=== PATIENT | male | born 1990 | race African-American/Black ===

== ENCOUNTER 2016-08-25 16:25 | Emergency (ER) | payer OTHER ==
[~2016-08-25] VITALS: Ht 188 cm; Wt 104.0 kg
[2016-08-25 16:35] VITALS: BP 120/68; PULSE 94; RESP 14; O2SAT 97
--- NOTE | 2016-08-25 17:02 | ED.REPORT ---
HPI-Dyspnea / Wheezing Date of Service Aug 25, 2016 ED Provider: Taco Ignacio DO This patient is a 26 year healthy old male presenting to the ED complaining of cold symptoms. Pt. states that he has had rhinorrhea and cough for 6 days. Burning chest pain started yesterday but worsened this morning. Also admits to sinus pain, congestion when coughing, vomiting associated with cough with white sputum but denies fever, earaches, wheezing, or sore throat. Pt. hasn't tried any medications for relief. Nursing Notes Stated Complaint: COUGH,CHEST BURNING Chief Complaint: Respiratory Complaints Nursing Notes Reviewed: Yes Allergies: Coded Allergies: No Known Allergies (Unverified , 08/25/16) Scheduled PRN Guaifenesin/Codeine Phosphate (Cheratussin AC Syrup) 118 Ml Liquid 5-10 ML PO q4 hrs PRN PRN For Cough General Time Seen by MD: 17:01 Chief Complaint Cough Cold symptoms Hx Obtained From: Patient Arrived By: Walk-in Sudden in Onset?: No Onset Occurred: 6 days ago Location: : Substernal Quality: Burning Radiation: : Does not radiate Severity: Current: Mild Severity: Maximum: Mild Recent Healthcare: No recent doctor visit, No recent hospitalization Similar Sx Previous: No Past Medical History Past Medical History None reported Past Surgical History None reported Smoking History Unknown if Ever Smoker Ambulatory Status Independent Review of Systems Basic Review of Systems Eyes: Vision NL GI: No abdominal pain Psychiatric: Normal thought content Constitutional: Denies: Fever Ears / Nose / Throat: Reports: Nasal congestion, Sinus problem (Pain), Denies: Earache bilateral, Sore throat Respiratory: Reports: Prod cough, white, Denies: Wheezing Cardiovascular: Reports: Chest pain (burning when coughing) Allergy / Immune: Reports: Rhinorrhea Complete sys rev & neg: except as marked. GI: Reports: Vomiting (Associated with vomiting) Physical Exam Initial Vital Signs Vital Signs (First) Date Time Temp Pulse Resp B/P Pulse Ox O2 Delivery O2 Flow Rate FiO2 08/25/16 16:35 36.3 94 14 120/68 97 Room Air Initial VS: Reviewed Head / Eyes: Atraumatic, Normocephalic, PERRL ENT: Mucous membranes moist, Conjunctiva normal, No scleral icterus Abdomen / GI: Soft, Non-tender Extremities: Vascular intact, Neuro intact Skin: Warm, Dry, No cyanosis Neurologic: Alert, Oriented, Nonfocal Psychiatric: Mood/affect normal, Behavior normal, Normal thought content General/Constitutional: Awake, Alert, No acute distress, Well developed Neck: Atraumatic, Supple, No meningismus, Full range of motion, No swelling Respiratory / Chest: Atraumatic, Breath sounds NL, Breath sounds = bilat, No respiratory distress Cardiovascular: Heart rate NL, Regular rhythm, Heart sounds NL, No murmurs ENT: Atraumatic, Airway patent, Pharynx NL Re-Eval/Medical Decision Source of Hx: Old records Re-Evaluation/Progress : Patient Status: Condition worsened Re-Evaluation/Progress Note: Pt. was notified that he'd be discharged during initial exam. Pt. understands and agrees with plan. All questions have been addressed. Counseled Regarding: Diagnosis, Need for follow-up, When/why to return to ED Discharge & Departure Impression: Primary Impression: Upper respiratory infection URI type: unspecified viral URI Qualified Code: J06.9 - Acute upper respiratory infection, unspecified Additional Impression: Cough Disposition: Home Discharge Condition All VS Reviewed: Yes Condition: Stable Patient Instructions: Chronic Cough (ED), Upper Respiratory Infection (ED) Additional Instructions: Thank you for entrusting your care with us today. I believe you have an upper respiratory infection and cough. Your physical exam does not reveal any pneumonia. I recommend symptomatic treatment for your cough. You may use cough syrup provided today. I do not believe an antibiotic is necessary at this point. I expect you will feel better within the next 4-5 days. Return to the ER if you have new or worsening symptoms. Referrals: [facility] (PCP) Scribe Attestation Portions of this note were transcribed by Mena Irving. I, Dr. Ignacio personally performed the history, physical exam and medical decision- making; I reviewed and confirmed the accuracy of the information in the transcribed note. Signed by: Christopher Bruno, 08/25/2016 and 181. Taco Ignacio DO Aug 25, 2016 17:02 Echo Moody [Mena] Aug 25, 2016 17:15 VANNESSA IRVING Aug 25, 2016 18:14
[2016-08-25] MEDS ORDERED: Codeine-guaiFENesin 10 mL Syrup PO ONE (17:15)
[2016-08-25] MEDS ORDERED: GUAI118L13 PO (17:53)
[2016-08-25 18:02] VITALS: BP 127/82; PULSE 76; RESP 18; O2SAT 96
== END 2016-08-25 18:03 | disposition home or self-care (01) ==
LOC: SED 16:25
DX: J06.9 Acute upper respiratory infection, unspecified (principal)